=== PATIENT | female | born 2000 | race Caucasian/White ===

== ENCOUNTER 2019-04-13 09:10 | Emergency (ER) | payer SELFPAY ==
[2019-04-13 09:19] VITALS: BP 120/81
--- NOTE | 2019-04-13 10:06 | UC ---
Skin Complaint HPI - HPI Summary HPI Summary: 19-year-old female comes in with itchy rash that started yesterday morning. 3 days ago she took this Prestone to initiate a elective medical . 2 days ago she took misoprostol in the evening. She did report her throat felt tingly after taking the misoprostol. She awoke the morning yesterday with a rash on her breasts that is itching. She did take some ibuprofen after the misoprostol 2 days ago. Now she has no difficulty breathing or swallowing no shortness of breath. No Fevers chills feels well otherwise. She has not tried any Benadryl or other [id number]-kxdiofy medication for her rash. - History of Current Complaint Chief Complaint: UCRash Time Seen by Provider: 04/13/19 09:42 Stated Complaint: RASH Hx Last Menstrual Period: 02/13/19 Pain Intensity: 0 - Allergy/Home Medications Allergies/Adverse Reactions: Allergies Allergy/AdvReac Type Severity Reaction Status Date / Time misoprostol Allergy Rash Verified 04/13/19 09:20 LIQUID ANTIBIOTIC ?NAME AdvReac Intermediate N/V Uncoded 04/13/19 09:20 PMH/Surg Hx/FS Hx/Imm Hx Previously Healthy: Yes - Surgical History Surgical History: Yes Surgery Procedure, Year, and Place: tubes in ears as child appy - Family History Known Family History: Positive: Non-Contributory - Social History Alcohol Use: None Substance Use Type: None Smoking Status (MU): Never Smoked Tobacco - Immunization History Most Recent Influenza Vaccination: fall 2013 Vaccination Up to Date: Yes Review of Systems All Other Systems Reviewed And Are Negative: Yes Constitutional: Positive: Negative Skin: Positive: Other - see hpi Eyes: Positive: Negative ENT: Positive: Other - see hpi Respiratory: Positive: Negative Cardiovascular: Positive: Negative Gastrointestinal: Positive: Negative Motor: Positive: Negative Neurovascular: Positive: Negative Musculoskeletal: Positive: Negative Neurological: Positive: Negative Psychological: Positive: Negative Is Patient Immunocompromised?: No Physical Exam Triage Information Reviewed: Yes Appearance: Well-Appearing, No Pain Distress, Well-Nourished Vital Signs: Initial Vital Signs Temp 98.2 F 04/13/19 09:15 Pulse 99 04/13/19 09:15 Resp 18 04/13/19 09:15 BP 120/81 04/13/19 09:15 Pulse Ox 100 04/13/19 09:15 Vital Signs Reviewed: Yes Eye Exam: Normal Eyes: Positive: Conjunctiva Clear ENT: Positive: Pharynx normal. Negative: Muffled voice, Hoarse voice Neck: Positive: Supple Respiratory: Positive: Lungs clear, Normal breath sounds, No respiratory distress Cardiovascular: Positive: RRR Musculoskeletal: Positive: Strength Intact, ROM Intact Neurological: Positive: Alert, Muscle Tone Normal Psychological: Positive: Age Appropriate Behavior Skin: Positive: Other - On the upper aspect of both breasts there is an erythematous rash. It only partially blanches. It is not raised. Course/Dx - Course Course Of Treatment: With the rash being itchy and occurring after taking misoprostal and ibuprofen. I'll consider the patient allergic to misoprostal. The rash was only partially blanching giving the possibility of a vasculitis. There is no systemic issues apparent at this time. We'll treat with Benadryl and Pepcid [id number] when necessary and follow-up with her primary care doctor. I did let her know that did not take any more ibuprofen until after the rash completely gone and if she does get a rash when taking ibuprofen and consider herself allergic to ibuprofen. Patient's get reevaluated sooner if worse or any questions or concerns. - Diagnoses Provider Diagnosis: Rash Discharge ED - Sign-Out/Discharge Documenting (check all that apply): Patient Departure All imaging exams completed and their final reports reviewed: No Studies - Discharge Plan Condition: Stable Disposition: HOME Patient Education Materials: Acute Rash (ED), General Allergic Reaction (ED) Referrals: [facility] [place] [facility] [Outside] Additional Instructions: FOLLOW UP WITH YOUR DOCTOR. Consider yourself allergic to misoprostal. TAKE BENADRYL 50MG EVERY 6 HOURS NEEDED. TAKE PEPCID 20MG TWICE A DAY NEEDED. Do not take any ibuprofen until the rash is completely gone. If you develop a rash the next and take ibuprofen then consider yourself allergic to ibuprofen and do not take anymore ibuprofen. GET RECHECKED SOONER IF WORSE OR ANY QUESTIONS OR CONCERNS. - Billing Disposition and Condition Condition: STABLE Disposition: Home
== END 2019-04-13 10:10 | disposition home or self-care (01) ==
LOC: UCEAST 09:10
DX: R21 Rash and other nonspecific skin eruption (principal); Z88.6 Allergy status to analgesic agent; Z88.1 Allergy status to other antibiotic agents
CPT/HCPCS: 99201; G0463